=== PATIENT | male | born 1960 | race Caucasian/White ===

== ENCOUNTER 2016-04-12 11:30 | Day surgery (SDC) ==
[2016-04-12] MEDS ORDERED: KEFZOL 2 GM/D5W 50 ML ONE (11:52)
[2016-04-12] MEDS ORDERED: PEPCID ONE (11:52)
[2016-04-12] MEDS ORDERED: LR 1,000 ML ONE ×2 (11:52→15:24)
[2016-04-12] MEDS ORDERED: REGLAN ONE (11:52)
[2016-04-12] MEDS ORDERED: SENSORCAINE 0.5%-EPI 1:200,000 ONE (13:54)
[2016-04-12] MEDS ORDERED: NEOSPORIN G.U. IRRIGANT ONE (13:54)
[2016-04-12] MEDS ORDERED: FENTANYL ONE (15:07)
[2016-04-12] MEDS ORDERED: DIPRIVAN 1% ONE (15:08)
[2016-04-12] MEDS ORDERED: MORPHINE ONE ×2 (15:14→15:33)
[2016-04-12] MEDS: MORPHINE ONE ×2 (15:22→15:29)
[2016-04-12] MEDS ORDERED: ZOFRAN ONE (15:24)
[2016-04-12] MEDS ORDERED: DECADRON ONE (15:24)
[2016-04-12] MEDS ORDERED: NORCO-10 ONE (15:55)
[2016-04-12 16:20] VITALS: BP 155/93
--- NOTE | 2016-04-12 17:01 | OPERATIVE NOTE ---
PROCEDURE DATE: 04/12/2016 PREOPERATIVE DIAGNOSIS: Right distal radius volar Diallo fracture. POSTOPERATIVE DIAGNOSIS: Right distal radius volar Diallo fracture. PROCEDURE PERFORMED: Open reduction, internal fixation of right volar Diallo distal radius fracture. ANESTHESIA: General. SURGEON: Jose Francisco Lunsford MD QUALITY NURSE: Jorge A Rodriguez RN COMPLICATIONS: None. BLOOD LOSS: Minimal. TOURNIQUET TIME: Approximately 30 minutes. DESCRIPTION OF PROCEDURE: The patient was brought to operative suite and placed in supine position. After successful administration of general anesthesia, a well-padded tourniquet was placed on the right upper arm and right upper extremity was prepped and draped in the usual sterile fashion. The arm was exsanguinated. Tourniquet insufflated to 250 torr. A longitudinal incision was made overlying the flexor carpi radialis tendon. It was dissected sharply through the skin and deep to the flexor radialis tendon and then bluntly down to the pronator quadratus. The pronator quadratus was elevated off the radial border of the radius exposing the fracture site. Using finger traps, the volar Diallo fracture was reduced and a Synthes volar locking plate was placed with 4 bicortical screws proximally, 3 of them locking and 7 locking buttress pins distally. Excellent reduction of the fracture was obtained on AP and lateral images. The wound was copiously irrigated. The pronator quadratus was repaired with 2-0 Vicryl. The fascia was closed with 2-0 Vicryl. Skin edge approximated with 4-0 nylon. The wound was injected with Marcaine and a sterile dressing and a well-padded volar splint was applied. The patient tolerated the procedure well without complication. At the end of the procedure, all counts correct x2. The patient was transferred to the recovery room in stable condition.
== END 2016-04-12 16:28 | disposition home or self-care (01) ==
LOC: OPS 11:30
PROVIDERS: ATTEND Orthopaedic Surgery
DX: S52.541A Smith's fracture of right radius, initial encounter for closed fracture (principal); M06.9 Rheumatoid arthritis, unspecified; F17.210 Nicotine dependence, cigarettes, uncomplicated
CPT/HCPCS: 76000; J0690; J1100; J2270; J2405; J3010; J7120